=== PATIENT | male | born 1945 | race Caucasian/White ===

== ENCOUNTER → 2016-11-30 16:45 | Outpatient (CLI) | payer MEDICARE, OTHER ==
[2016-10-05 11:14] VITALS: BMI 24.4
[~2016-11-30 16:45] MED LIST: ARTANE2 MG PO; BACTRIM DS TABL1 TAB PO; BAYER CHEWABLE81 MG PO; CARDURA1 MG PO; COMBIVENT RESPIM4 GM INH; CUBICIN500 MG IV; CYCLOBENZAPRINE10 MG PO; DESERYL100 MG PO; DICLOFENAC SODI50 MG PO; DIGESTIVE ADVANTAGE PO; HALOPERIDOL2 MG PO; HYDROCODON-ACE1 EAC7 PO; HYDROCODONE-APA1 TAB PO; K-DUR20 MEQ PO; LASIX20 MG PO; LOPRESSOR25 MG PO; NEURONTIN 400400 MG PO; NORVASC5 MG PO; OMEPRAZOLE20 M1 PO; PERCOCET 10/3251 TA1 PO; PLAVIX75 MG PO; TEGRETOL200 MG PO; VIBRAMYCIN 100100 MG PO; VISTARIL25 MG PO; VITAMIN B-121000 MCG PO; ZOCOR20 MG PO
[2016-11-30 17:09] LABS: BASOPHILS 2.1 % (0.0-2.0); EOSINOPHILS 17.4 % (0-7); HEMATOCRIT 31.4 % (42.0-54.0); HEMOGLOBIN 9.1 g/dL (13.5-17.5); LYMPHOCYTES 20.5 % (15-50); MCH 22.2 pg (26.0-34.0); MCV 76.6 fL (80.0-100.0); MONOCYTES 6.1 % (2-11); NEUTROPHILS 53.9 % (40-80); PLATELET COUNT 277 10x3/uL (130-400); RDW 19.3 % (11.5-14.5); WBC 6.3 10x3/uL (4.8-10.8)
[2016-11-30 17:25] LABS: C-REACTIVE PROTEIN 1.5 mg/dL (0.0-0.9); CALC OSMOLALITY 267 mosm/kg (275-300); CALCIUM 8.4 mg/dL (8.5-10.1); CARBON DIOXIDE 34.3 mmol/L (21.0-32.0); CHLORIDE - SERUM 97 mmol/L (98-107); GLUCOSE 79 mg/dL (74-106); POTASSIUM - SERUM 3.8 mmol/L (3.5-5.1); SODIUM 136 mmol/L (136-145); UREA NITROGEN 5 mg/dL (7-18); VANCOMYCIN - TROUGH 22.3 ug/mL (10.0-20.0); eGFR NON AFRICAN AMERICAN 78 mL/min (90-120)
== END | disposition home or self-care (01) ==
LOC: D.LABREF 16:45
DX: T81.4XXA Infection following a procedure, initial encounter (principal)

== ENCOUNTER → 2016-12-07 16:36 | Outpatient (CLI) | payer MEDICARE, OTHER ==
[2016-10-05 11:14] VITALS: BMI 24.4
[2016-12-07 17:59] LABS: C-REACTIVE PROTEIN 1.7 mg/dL (0.0-0.9); CALC OSMOLALITY 264 mosm/kg (275-300); CALCIUM 8.4 mg/dL (8.5-10.1); CARBON DIOXIDE 30.7 mmol/L (21.0-32.0); CHLORIDE - SERUM 97 mmol/L (98-107); CREATININE - SERUM 0.9 mg/dL (0.6-1.3); POTASSIUM - SERUM 3.9 mmol/L (3.5-5.1); SODIUM 135 mmol/L (136-145); UREA NITROGEN 5 mg/dL (7-18); VANCOMYCIN - TROUGH 17.9 ug/mL (10.0-20.0); eGFR NON AFRICAN AMERICAN 89 mL/min (90-120)
[2016-12-07 18:10] LABS: BASOPHILS 1.8 % (0.0-2.0); EOSINOPHILS 18.1 % (0-7); HEMATOCRIT 30.7 % (42.0-54.0); HEMOGLOBIN 9.2 g/dL (13.5-17.5); IMMATURE GRANULOCYTES 0.2 % (0-5); MCH 23.1 pg (26.0-34.0); MCV 77.1 fL (80.0-100.0); MEAN PLATELET VOLUME 9.3 fL (7.4-10.4); MONOCYTES 8.9 % (2-11); RBC 3.98 10x6/uL (4.20-6.10); RDW 19.9 % (11.5-14.5)
[2016-12-07 18:11] LABS: PLATELET COUNT 192 10x3/uL (130-400)
[2016-12-07 18:16] LABS: GLUCOSE 67 mg/dL (74-106)
== END | disposition home or self-care (01) ==
LOC: D.LABREF 16:36
PROVIDERS: Family Medicine
DX: T84.50XA Infection and inflammatory reaction due to unspecified internal joint prosthesis, initial encounter (principal)

== ENCOUNTER → 2016-12-14 13:56 | Outpatient (CLI) | payer MEDICARE, OTHER ==
[2016-10-05 11:14] VITALS: BMI 24.4
[2016-12-14 15:00] LABS: BASOPHILS 1.4 % (0.0-2.0); EOSINOPHILS 16.1 % (0-7); HEMATOCRIT 32.4 % (42.0-54.0); HEMOGLOBIN 9.8 g/dL (13.5-17.5); LYMPHOCYTES 22.3 % (15-50); MCHC 30.2 g/dL (31.0-37.0); MCV 75.9 fL (80.0-100.0); MEAN PLATELET VOLUME 9.8 fL (7.4-10.4); MONOCYTES 8.2 % (2-11); PLATELET COUNT 186 10x3/uL (130-400); RBC 4.27 10x6/uL (4.20-6.10); RDW 18.9 % (11.5-14.5)
[2016-12-14 16:11] LABS: CALC OSMOLALITY 267 mosm/kg (275-300); CALCIUM 8.8 mg/dL (8.5-10.1); CARBON DIOXIDE 32.9 mmol/L (21.0-32.0); CHLORIDE - SERUM 97 mmol/L (98-107); CREATININE - SERUM 0.8 mg/dL (0.6-1.3); GLUCOSE 81 mg/dL (74-106); POTASSIUM - SERUM 3.9 mmol/L (3.5-5.1); SODIUM 136 mmol/L (136-145); UREA NITROGEN 3 mg/dL (7-18); eGFR NON AFRICAN AMERICAN > 90 mL/min (90-120)
== END | disposition home or self-care (01) ==
LOC: D.LABREF 13:56
PROVIDERS: Orthopaedic Surgery
DX: T84.59XA Infection and inflammatory reaction due to other internal joint prosthesis, initial encounter (principal); M00.811 Arthritis due to other bacteria, right shoulder

== ENCOUNTER 2017-02-17 17:43 | Emergency (ER) | payer MEDICARE, OTHER ==
[2016-10-05 11:14] VITALS: BMI 24.4
[2017-02-17 19:02] LABS: BASOPHILS 0.2 % (0.0-2.0); EOSINOPHILS 7.1 % (0-7); HEMATOCRIT 30.3 % (42.0-54.0); HEMOGLOBIN 9.5 g/dL (13.5-17.5); LYMPHOCYTES 32.6 % (15-50); MCH 24.9 pg (26.0-34.0); MCHC 31.4 g/dL (31.0-37.0); MCV 79.5 fL (80.0-100.0); MEAN PLATELET VOLUME 9.4 fL (7.4-10.4); MONOCYTES 12.3 % (2-11); NEUTROPHILS 47.8 % (40-80); PLATELET COUNT 117 10x3/uL (130-400); RBC 3.81 10x6/uL (4.20-6.10); RDW 19.6 % (11.5-14.5); WBC 4.2 10x3/uL (4.8-10.8)
[2017-02-17 19:08] LABS: INR 1.27 (0.85-1.17); PROTIME 15.8 SECONDS (11.6-15.0)
[2017-02-17 19:11] LABS: ALBUMIN 2.9 g/dL (3.4-5.0); ALKALINE PHOSPHATASE 208 U/L (46-116); ALT (SGPT) 25 U/L (10-68); CALC OSMOLALITY 251 mosm/kg (275-300); CARBON DIOXIDE 27.2 mmol/L (21.0-32.0); CHLORIDE - SERUM 91 mmol/L (98-107); GLUCOSE 95 mg/dL (74-106); POTASSIUM - SERUM 3.1 mmol/L (3.5-5.1); PROTEIN - SERUM 5.8 g/dL (6.4-8.2); SODIUM 126 mmol/L (136-145); UREA NITROGEN 10 mg/dL (7-18); eGFR NON AFRICAN AMERICAN 78 mL/min (90-120)
[2017-02-17 19:34] LABS: CREATINE KINASE 490 UL (21-232); PRO BNP 38 pg/mL (0-125)
[2017-02-17 19:35] LABS: TROPONIN-I < 0.017 ng/mL (0.000-0.060)
[2017-02-17 19:36] LABS: CKMB 8.7 U/L (0.0-3.6)
[2017-02-17 20:19] LABS: APPEARANCE CLEAR (CLEAR); BILIRUBIN NEGATIVE (NEGATIVE); COLOR YELLOW (YELLOW); GLUCOSE NEGATIVE (NEGATIVE); KETONE NEGATIVE (NEGATIVE); LEUKOCYTE ESTERASE NEGATIVE (NEGATIVE); NITRITE NEGATIVE (NEGATIVE); PROTEIN NEGATIVE (NEGATIVE); UROBILINOGEN NORMAL (NORMAL)
[2017-02-17 20:34] LABS: UDS - AMPHET NEGATIVE QUAL (NEGATIVE); UDS - BARB NEGATIVE QUAL (NEGATIVE); UDS - BENZO NEGATIVE QUAL (NEGATIVE); UDS - COCAINE NEGATIVE QUAL (NEGATIVE); UDS - METH NEGATIVE QUAL (NEGATIVE); UDS - OPIATE POSITIVE QUAL (NEGATIVE); UDS - PCP NEGATIVE QUAL (NEGATIVE); UDS - THC NEGATIVE QUAL (NEGATIVE)
== END 2017-02-17 22:45 | disposition home or self-care (01) ==
LOC: D.ER 17:43
PROVIDERS: Emergency Medicine; Nurse Practitioner Family
DX: R41.82 Altered mental status, unspecified (principal); K59.00 Constipation, unspecified; Z98.890 Other specified postprocedural states; E87.6 Hypokalemia; E87.1 Hypo-osmolality and hyponatremia; I45.10 Unspecified right bundle-branch block

== ENCOUNTER 2017-07-19 13:37 | Emergency (ER) | payer MEDICARE, OTHER ==
[2016-10-05 11:14] VITALS: BMI 24.4
[2017-07-19 15:00] LABS: BASOPHILS 0.4 % (0-2); EOSINOPHILS 3.6 % (0-7); HEMATOCRIT 38.3 % (42.0-54.0); HEMOGLOBIN 12.7 g/dL (13.5-17.5); IMMATURE GRANULOCYTES 0.1 % (0-5); MCH 28.8 pg (26.0-34.0); MCHC 33.2 g/dL (31.0-37.0); MCV 86.8 fL (80.0-100.0); MEAN PLATELET VOLUME 9.2 fL (7.4-10.4); MONOCYTES 7.5 % (2-11); NEUTROPHILS 76.4 % (40-80); RBC 4.41 10x6/uL (4.20-6.10); RDW 13.6 % (11.5-14.5); WBC 8.3 10x3/uL (4.8-10.8)
[2017-07-19 15:18] LABS: ALBUMIN 3.4 g/dL (3.4-5.0); ALKALINE PHOSPHATASE 129 U/L (46-116); ALT (SGPT) 40 U/L (10-68); CALC OSMOLALITY 255 mosm/kg (275-300); CALCIUM 8.4 mg/dL (8.5-10.1); CARBON DIOXIDE 34.8 mmol/L (21.0-32.0); CHLORIDE - SERUM 92 mmol/L (98-107); CREATININE - SERUM 0.8 mg/dL (0.6-1.3); GLUCOSE 96 mg/dL (74-106); POTASSIUM - SERUM 4.1 mmol/L (3.5-5.1); PROTEIN - SERUM 6.8 g/dL (6.4-8.2); SODIUM 129 mmol/L (136-145); UREA NITROGEN 3 mg/dL (7-18); eGFR NON AFRICAN AMERICAN > 90 mL/min (90-120)
[2017-07-19 15:30] LABS: CREATINE KINASE 290 UL (21-232); TROPONIN-I < 0.017 ng/mL (0.000-0.060)
[2017-07-19 15:33] LABS: PLATELET COUNT 168 10x3/uL (130-400)
== END 2017-07-19 17:09 | disposition home or self-care (01) ==
LOC: D.ER 13:37
PROVIDERS: Family Medicine
DX: R07.89 Other chest pain (principal); R06.02 Shortness of breath; R05 Cough